=== PATIENT | male | born 1985 | race Caucasian/White ===

== ENCOUNTER 2018-09-29 20:04 | Emergency (ER) | payer OTHER ==
[~2018-09-29] VITALS: Ht 188 cm; Wt 109.8 kg
[2018-09-29 20:17] VITALS: Ht 188 cm; Wt 109.8 kg
[2018-09-29 22:50] VITALS: BP 122/81
== END 2018-09-29 22:50 | disposition home or self-care (01) ==
LOC: ED 20:04
DX: K21.9 Gastro-esophageal reflux disease without esophagitis (principal); E11.9 Type 2 diabetes mellitus without complications; Z79.84 Long term (current) use of oral hypoglycemic drugs
CPT/HCPCS: 82962